=== PATIENT | male | born 1990 | race Caucasian/White ===

== ENCOUNTER 2023-05-14 19:00 | Emergency (ER) | payer MEDICAID, OTHER ==
[2023-05-14] MEDS ORDERED: Diphtheria,Pertussis(Acell),Tetanus Vaccine 0.5 ML Syringe IM ONE (19:54)
[2023-05-14] MEDS ORDERED: Take Home: Clindamycin HCl 150 MG, 12 Cap Pack PO ONE (19:56)
== END 2023-05-14 20:08 | disposition home or self-care (01) ==
LOC: DL.ED 19:00
DX: S60.451A Superficial foreign body of left index finger, initial encounter (principal); Z72.0 Tobacco use; Z86.16 Personal history of COVID-19; Z23 Encounter for immunization; W45.8XXA Other foreign body or object entering through skin, initial encounter
CPT/HCPCS: 90471; 90715; 99282; A9270